=== PATIENT | female | born 1980 | race American Indian/Alaskan Native ===

== ENCOUNTER 2018-12-06 23:10 | Emergency (ER) | payer MEDICARE, OTHER ==
--- NOTE | 2018-12-07 00:45 | Emergency Department Report ---
ED General Adult HPI - General Chief complaint: Abdominal Pain Stated complaint: ABDOMINAL PAIN Time Seen by Provider: 12/07/18 00:43 Source: EMS Mode of arrival: Stretcher Limitations: No Limitations - History of Present Illness Initial comments: 38 y.o. female with no PMHx presents with complaint of abdominal pain after eating at [employer]. Patient states that she had [employer] at 4 PM today. Patient states that prior to having this she was asymptomatic. Patient states that after ingestion A Gong she had multiple episodes of vo miting. Patient denies any hematemesis. Patient complains of diarrhea as well but denies any hematochezia. Patient states she tried Pepto-Bismol, Gloria- Valier, and Pepcid AC with no relief. Patient denies any dysuria or hematuria. Patient has had no fever. - Related Data Previous Rx's Medication Instructions Recorded Last Taken Type Famotidine [Pepcid] 20 mg PO BID #60 tablet 12/07/18 Unknown Rx traMADol [Ultram] 50 mg PO Q6HR PRN #20 tablet 12/07/18 Unknown Rx Allergies Allergy/AdvReac Type Severity Reaction Status Date / Time Sulfa (Sulfonamide Allergy Mild Unknown Verified 12/07/18 00:19 Antibiotics) ED Review of Systems ROS: Stated complaint: ABDOMINAL PAIN Other details as noted in HPI Constitutional: denies: chills, fever Eyes: denies: eye pain, eye discharge, vision change ENT: denies: ear pain, throat pain Respiratory: denies: cough, shortness of breath, wheezing Cardiovascular: denies: chest pain, palpitations Endocrine: no symptoms reported Gastrointestinal: abdominal pain, nausea, vomiting, diarrhea Genitourinary: denies: urgency, dysuria, discharge Musculoskeletal: denies: back pain, joint swelling, arthralgia Skin: denies: rash, lesions Neurological: denies: headache, weakness, paresthesias Psychiatric: denies: anxiety, depression Hematological/Lymphatic: denies: easy bleeding, easy bruising ED Past Medical Hx - Social History Smoking Status: Current Every Day Smoker Substance Use Type: Marijuana - Medications Home Medications: Home Medications Medication Instructions Recorded Confirmed Last Taken Type Famotidine [Pepcid] 20 mg PO BID #60 tablet 12/07/18 Unknown Rx traMADol [Ultram] 50 mg PO Q6HR PRN #20 tablet 12/07/18 Unknown Rx ED Physical Exam - General Limitations: No Limitations General appearance: alert, in distress, other (awake; uncomfortable) - Head Head exam: Present: atraumatic, normocephalic - Eye Eye exam: Present: normal appearance - ENT ENT exam: Present: mucous membranes dry - Neck Neck exam: Present: normal inspection - Respiratory Respiratory exam: Present: normal lung sounds bilaterally. Absent: respiratory distress - Cardiovascular Cardiovascular Exam: Present: regular rate, normal rhythm. Absent: systolic murmur, diastolic murmur, rubs, gallop - GI/Abdominal GI/Abdominal exam: Present: soft, tenderness (diffusely), normal bowel sounds. Absent: rebound - Extremities Exam Extremities exam: Present: normal inspection - Back Exam Back exam: Present: normal inspection - Neurological Exam Neurological exam: Present: alert, oriented X3 - Psychiatric Psychiatric exam: Present: normal affect, normal mood - Skin Skin exam: Present: warm, dry, intact, normal color. Absent: rash ED Course Vital Signs 12/07/18 12/07/18 12/07/18 00:03 00:15 00:31 Temperature Pulse Rate 92 H 81 Respiratory 11 L 18 11 L Rate Blood Pressure Blood Pressure [Left] O2 Sat by Pulse 99 100 Oximetry 12/07/18 12/07/18 12/07/18 00:45 00:47 01:18 Temperature 97.9 F Pulse Rate 68 68 Respiratory 11 L 11 L Rate Blood Pressure Blood Pressure 158/104 [Left] O2 Sat by Pulse 100 99 Oximetry 12/07/18 12/07/18 12/07/18 01:30 02:29 02:30 Temperature Pulse Rate 57 L 91 H 70 Respiratory 13 10 L 14 Rate Blood Pressure 168/94 153/97 Blood Pressure 171/100 [Left] O2 Sat by Pulse 100 100 100 Oximetry 12/07/18 12/07/18 12/07/18 03:00 03:15 03:45 Temperature Pulse Rate 66 62 62 Respiratory 16 16 12 Rate Blood Pressure 155/91 168/94 155/91 Blood Pressure [Left] O2 Sat by Pulse 100 100 100 Oximetry 12/07/18 04:00 Temperature Pulse Rate 64 Respiratory 17 Rate Blood Pressure 157/103 Blood Pressure [Left] O2 Sat by Pulse 100 Oximetry ED Medical Decision Making - Lab Data Result diagrams: 12/07/18 01:02 12/07/18 01:02 - Medical Decision Making Patient received IV normal saline bolus of one liter and received 4 mg of Morphine and 4 mg of Zofran therapy. Patient received a second dose of 4 mg of morphine which helped to diminish her pain. Patient to be discharged to follow up with PCP. - Differential Diagnosis Pancreatitis; Cholelithiasis; electrolyte abnormality; anemia; Viral illnes Critical care attestation.: If time is entered above; I have spent that time in minutes in the direct care of this critically ill patient, excluding procedure time. ED Disposition Clinical Impression: Abdominal pain, Vomiting, Diarrhea Disposition: - TO HOME OR SELFCARE Is pt being admited?: No Does the pt Need Aspirin: No Condition: Stable Instructions: Abdominal Pain (ED) Prescriptions: Famotidine [Pepcid] 20 mg PO BID #60 tablet traMADol [Ultram] 50 mg PO Q6HR PRN #20 tablet PRN Reason: Pain Time of Disposition: 04:56 Print Language: INDONESIAN
[2018-12-07] MEDS ORDERED: MORPHINE IV ONE ×2 (00:53→02:22)
[2018-12-07] MEDS ORDERED: NACL 0.9% 1000 ML 1,000 ML IV ONE (00:53)
[2018-12-07] MEDS ORDERED: ZOFRAN IV ONE ×2 (00:53→04:09)
[2018-12-07] MEDS ORDERED: PEPCID IV ONE (00:53)
[2018-12-07 01:11] LABS: Basophils % (Auto) 0.5 % (0.0-1.8); Eosinophils % (Auto) 0.3 % (0.0-4.3); Hematocrit 39.5 % (30.3-42.9); Hemoglobin 13.3 gm/dl (10.1-14.3); Lymphocytes # (Auto) 1.6 K/mm3 (1.2-5.4); Mean Corpuscular HGB Conc 34 % (30-34); Mean Corpuscular Volume 104 fl (79-97); Monocytes # (Auto) 0.3 K/mm3 (0.0-0.8); Monocytes % (Auto) 4.5 % (0.0-7.3); Platelet Count 354 K/mm3 (140-440); Red Cell Distribution Width 13.7 % (13.2-15.2)
[2018-12-07 01:44] LABS: Alanine Aminotransferase 23 units/L (7-56); Albumin 4.8 g/dL (3.9-5); BUN/Creatinine Ratio 16; Blood Urea Nitrogen 8 mg/dL (7-17); Calcium 9.6 mg/dL (8.4-10.2); Hemolysis Index 21
[2018-12-07 01:46] LABS: Bilirubin,Direct < 0.2 mg/dL (0-0.2)
[2018-12-07] MEDS ORDERED: PERCOCET 5/325 PO STA (04:58)
[2018-12-07 05:10] VITALS: BP 143/90
--- NOTE | 2018-12-07 10:24 | Cat Scan Report ---
FINAL REPORT EXAM: CT ABDOMEN PELVIS WO CON HISTORY: Abdominal Pain TECHNIQUE: Routine axial imaging was obtained of the abdomen and pelvis without oral or IV contrast. Sagittal and coronal reconstructions were reviewed. FINDINGS: The study is limited without IV contrast. The lung bases are negative for infiltrates or effusions. The liver, gallbladder, biliary tree, pancreas, spleen, and adrenal glands appear normal. The kidneys reveal a nonobstructing 2 mm stone in the lower pole of the right kidney. There is no evidence of hy dronephrosis. The bowel loops are normal in caliber. There is no evidence of free fluid or adenopathy . The appendix is not enlarged. There is no evidence of free fluid or adenopathy. The uterus and blad henry appear normal. The skeletal structures reveal degenerative arthritic changes in the lower lumbar spine. IMPRESSION: No acute process in the abdomen and pelvis. Nonobstructing small stone in the right kidney. No evidence of hydronephrosis. Degenerative arthritic changes lower lumbar spine.
== END 2018-12-07 05:20 | disposition home or self-care (01) ==
LOC: ED 23:10
DX: R10.9 Unspecified abdominal pain (principal); R11.2 Nausea with vomiting, unspecified; R19.7 Diarrhea, unspecified; F17.200 Nicotine dependence, unspecified, uncomplicated; F12.10 Cannabis abuse, uncomplicated; Z88.2 Allergy status to sulfonamides
CPT/HCPCS: 36415; 74176; 80048; 80076; 83690; 84703; 85025; 96361; 96374; 96375; 96376; 99284; J2270; J2405; J7030

== ENCOUNTER 2019-06-08 09:52 | Emergency (ER) | payer MEDICAID, MEDICARE ==
[2019-06-08 10:13] VITALS: BP 138/84
[2019-06-08 10:37] LABS: Basophils # (Auto) 0.1 K/mm3 (0.0-0.1); Basophils % (Auto) 0.7 % (0.0-1.8); Eosinophils # (Auto) 0.1 K/mm3 (0.0-0.4); Eosinophils % (Auto) 1.1 % (0.0-4.3); Hemoglobin 14.1 gm/dl (10.1-14.3); Lymphocytes # (Auto) 1.4 K/mm3 (1.2-5.4); Lymphocytes % (Auto) 17.3 % (13.4-35.0); Monocytes # (Auto) 0.7 K/mm3 (0.0-0.8)
[2019-06-08] MEDS ORDERED: TORADOL IV ONE ×2 (10:51→10:55)
[2019-06-08] MEDS ORDERED: ZOFRAN IV ONE (10:51)
[2019-06-08] MEDS ORDERED: NACL 0.9% 1000 ML 1,000 ML IV ONE (10:51)
--- NOTE | 2019-06-08 10:52 | Emergency Department Report ---
ED Abdominal Pain HPI - General Chief Complaint: Abdominal Pain Stated Complaint: ABD PAIN Time Seen by Provider: 06/08/19 10:49 Source: patient, family Mode of arrival: Wheelchair Limitations: No Limitations - History of Present Illness Initial Comments: 39-year-old -Indian female presents to the ED with bilateral flank pain, for the past 3 months Intermittently. She has been to several hospital for her symptoms and was diagnosed with a kidney stone. She has been taking all "10 mg on a regular basis for her symptoms. She denies any fever, nausea, vomiting. MD Complaint: abdominal pain, flank pain -: Gradual, month(s) Location: L flank, R flank - Related Data Previous Rx's Medication Instructions Recorded Last Taken Type Famotidine [Pepcid] 20 mg PO BID #60 tablet 12/07/18 Unknown Rx traMADol [Ultram] 50 mg PO Q6HR PRN #20 tablet 12/07/18 Unknown Rx Ketorolac [Toradol] 10 mg PO Q6H PRN #15 tablet 06/08/19 Unknown Rx Allergies Allergy/AdvReac Type Severity Reaction Status Date / Time Sulfa (Sulfonamide Allergy Mild Unknown Verified 12/07/18 00:19 Antibiotics) ED Review of Systems ROS: Stated complaint: ABD PAIN Other details as noted in HPI Comment: All other systems reviewed and negative Eyes: denies: eye pain Respiratory: denies: cough Cardiovascular: denies: chest pain, palpitations Gastrointestinal: abdominal pain, nausea ED Past Medical Hx - Past Medical History Additional medical history: Kidney stones - Surgical History Past Surgical History?: No - Social History Smoking Status: Current Every Day Smoker Substance Use Type: None - Medications Home Medications: Home Medications Medication Instructions Recorded Confirmed Last Taken Type Famotidine [Pepcid] 20 mg PO BID #60 tablet 12/07/18 06/08/19 Unknown Rx traMADol [Ultram] 50 mg PO Q6HR PRN #20 tablet 12/07/18 06/08/19 Unknown Rx Ketorolac [Toradol] 10 mg PO Q6H PRN #15 tablet 06/08/19 Unknown Rx ED Physical Exam - General Limitations: No Limitations General appearance: alert, in no apparent distress - Head Head exam: Present: atraumatic, normocephalic - Eye Eye exam: Present: normal appearance, PERRL, EOMI Pupils: Present: normal accommodation - ENT ENT exam: Present: normal exam, normal orophraynx - Respiratory Respiratory exam: Present: normal lung sounds bilaterally - Cardiovascular Cardiovascular Exam: Present: regular rate, normal rhythm - GI/Abdominal GI/Abdominal exam: Present: soft, normal bowel sounds - Rectal Rectal exam: Present: deferred - External exam: Present: normal external exam - Extremities Exam Extremities exam: Present: normal inspection ED Course Vital Signs 06/08/19 10:11 Temperature 98.4 F Pulse Rate 96 H Respiratory 20 Rate Blood Pressure 138/84 O2 Sat by Pulse 100 Oximetry ED Medical Decision Making - Lab Data Result diagrams: 06/08/19 10:27 06/08/19 10:27 - Medical Decision Making CT showed, 2 mm nonobstructing stone on the right, patient advised, will d/c home. Critical care attestation.: If time is entered above; I have spent that time in minutes in the direct care of this critically ill patient, excluding procedure time. ED Disposition Clinical Impression: Kidney stones Disposition: DC-01 TO HOME OR SELFCARE Is pt being admited?: No Does the pt Need Aspirin: No Condition: Stable Instructions: Abdominal Pain (ED) Prescriptions: Ketorolac [Toradol] 10 mg PO Q6H PRN #15 tablet PRN Reason: Pain Referrals: MIRLANDE NICHOLSON MD [Primary Care Provider] - 3-5 Days
[2019-06-08] MEDS ORDERED: MORPHINE IV ONE (10:56)
[2019-06-08 10:58] LABS: Alanine Aminotransferase 37 units/L (7-56); Albumin 4.6 g/dL (3.9-5); BUN/Creatinine Ratio 12; Blood Urea Nitrogen 7 mg/dL (7-17); Calcium 9.9 mg/dL (8.4-10.2); Hemolysis Index 31
[2019-06-08 11:02] LABS: Hematocrit 41.8 % (30.3-42.9); Mean Corpuscular HGB Conc 34 % (30-34); Mean Corpuscular Volume 103 fl (79-97); Platelet Count 436 K/mm3 (140-440); Red Blood Count 4.06 M/mm3 (3.65-5.03); Red Cell Distribution Width 12.1 % (13.2-15.2)
[2019-06-08 12:30] LABS: Bilirubin,Urine NEG (Negative); Blood,Urine MOD (Negative); Color,Urine Yellow (Yellow); Mucus,Urine 3+ /HPF; Protein,Urine <15 mg/dL mg/dL (Negative)
[2019-06-08 12:44] LABS: HCG Qualitative,Urine Negative (Negative)
--- NOTE | 2019-06-08 13:38 | Cat Scan Report ---
CT ABDOMEN AND PELVIS WITHOUT CONTRAST HISTORY: bilat flank pain h/o kidney stones COMPARISON: 12/07/2018 TECHNIQUE: Images of the abdomen and pelvis were obtained without IV contrast. Oral contrast was not given. Dose adjustment was performed according to patient size. This exam is limited without IV contrast and is tailored for evaluation of renal calculi. Renal trell s and other sources of hematuria and abdominal pain may not be visible on this exam. CONTRAST: None. FINDINGS: CT ABDOMEN: Lung Bases: Clear. Liver: Normal. Biliary: Normal. Spleen: Normal. Pancreas: Normal. Adrenals: Normal. Right Kidney: A 2 mm nonobstructive lower pole calculus is unchanged compared to the last exam. No ot her calculi. No hydronephrosis. Left Kidney: No nephrolithiasis or hydronephrosis. Lymphatics: No lymphadenopathy. Vasculature: No significant abnormality. Bowel/Peritoneum: No significant abnormality. No free air. No free fluid. Normal appendix. CT PELVIS: : Normal urinary bladder and uterus. Ovaries are not clearly delineated. Osseous Structures: No significant abnormality. Additional Findings: L5-S1 degenerative disc disease with vacuum disc phenomenon. IMPRESSION: 1. A 2 mm nonobstructive right lower pole renal calculus and no other urinary calculi. 2. No hydronephrosis or hydroureter. 3. L5-S1 degenerative disc disease. Signer Name: Lewis Flores MD Signed: 06/08/2019 1:34 PM Workstation Name: [id number]
== END 2019-06-08 14:40 | disposition home or self-care (01) ==
LOC: ED 09:52
DX: N20.0 Calculus of kidney (principal); F17.200 Nicotine dependence, unspecified, uncomplicated; Z88.2 Allergy status to sulfonamides; Z79.899 Other long term (current) drug therapy
CPT/HCPCS: 36415; 74176; 80053; 81001; 81025; 85025; 96374; 96375; 99284; J1885; J2270; J2405; J7030

== ENCOUNTER 2020-01-30 05:13 | Emergency (ER) | payer SELFPAY ==
[2020-01-30] MEDS ORDERED: ASPIRIN 325 MG TAB PO ONE (05:30)
--- NOTE | 2020-01-30 06:01 | XRay Report ---
CHEST 1 VIEW INDICATION: Chest Pain. COMPARISON: none FINDINGS: SUPPORT DEVICES: None. HEART / MEDIASTINUM: No significant abnormality. LUNGS / PLEURA: No significant pulmonary or pleural abnormality. No pneumothorax. ADDITIONAL FINDINGS: IMPRESSION: 1. No acute cardiopulmonary disease Signer Name: Yunior Pro MD Signed: 01/30/2020 5:56 AM Workstation Name: [id number]
[2020-01-30 06:12] LABS: Basophils % (Auto) 0.4 % (0.0-1.8); Eosinophils % (Auto) 0.2 % (0.0-4.3); Lymphocytes # (Auto) 1.4 K/mm3 (1.2-5.4); Lymphocytes % (Auto) 14.2 % (13.4-35.0); Mean Corpuscular HGB Conc 34 % (30-34); Mean Corpuscular Volume 99 fl (79-97); Monocytes # (Auto) 0.6 K/mm3 (0.0-0.8); Monocytes % (Auto) 5.5 % (0.0-7.3); Platelet Count 344 K/mm3 (140-440); Red Blood Count 4.13 M/mm3 (3.65-5.03); Red Cell Distribution Width 13.9 % (13.2-15.2)
[2020-01-30 06:34] LABS: BUN/Creatinine Ratio 16; Blood Urea Nitrogen 8 mg/dL (7-17); Calcium 10.1 mg/dL (8.4-10.2); Hemolysis Index 3
--- NOTE | 2020-01-30 06:57 | Emergency Department Report ---
ED General Adult HPI - General Chief complaint: Chest Pain Stated complaint: CHEST PAIN Time Seen by Provider: 01/30/20 06:32 Source: EMS Mode of arrival: Stretcher Limitations: No Limitations - History of Present Illness Initial comments: The patient presents to the emergency department with a chief complaint of chest pain that started this morning. Patient describes the chest pain as being on the right side of her chest and sharp in nature. Patient states the chest pain is worse with deep breaths. Patient denies any recent travel via airplane or vehicle. -: Sudden Severity scale (0 -10): 5 Quality: sharp Consistency: constant Improves with: none Worsens with: none Associated Symptoms: denies other symptoms Treatments Prior to Arrival: none - Related Data Previous Rx's Medication Instructions Recorded Last Taken Type Famotidine [Pepcid] 20 mg PO BID #60 tablet 12/07/18 Unknown Rx traMADoL [Ultram] 50 mg PO Q6HR PRN #20 tablet 12/07/18 Unknown Rx Ketorolac [Toradol] 10 mg PO Q6H PRN #15 tablet 06/08/19 Unknown Rx traMADoL [Ultram] 50 mg PO Q6HR PRN #20 tablet 01/30/20 Unknown Rx Allergies Allergy/AdvReac Type Severity Reaction Status Date / Time Sulfa (Sulfonamide Allergy Mild Unknown Verified 12/07/18 00:19 Antibiotics) ED Review of Systems ROS: Stated complaint: CHEST PAIN Other details as noted in HPI Comment: All other systems reviewed and negative Constitutional: denies: chills, fever Eyes: denies: eye pain, eye discharge, vision change ENT: denies: ear pain, throat pain Respiratory: denies: cough, shortness of breath, wheezing Cardiovascular: chest pain. denies: palpitations Endocrine: no symptoms reported Gastrointestinal: denies: abdominal pain, nausea, diarrhea Genitourinary: denies: urgency, dysuria, discharge Musculoskeletal: denies: back pain, joint swelling, arthralgia Skin: denies: rash, lesions Neurological: denies: headache, weakness, paresthesias Psychiatric: denies: anxiety, depression Hematological/Lymphatic: denies: easy bleeding, easy bruising ED Past Medical Hx - Past Medical History Previous Medical History?: Yes Additional medical history: Kidney stones, anxiety - Surgical History Past Surgical History?: No - Social History Smoking Status: Never Smoker Substance Use Type: Marijuana - Medications Home Medications: Home Medications Medication Instructions Recorded Confirmed Last Taken Type Famotidine [Pepcid] 20 mg PO BID #60 tablet 12/07/18 06/08/19 Unknown Rx traMADoL [Ultram] 50 mg PO Q6HR PRN #20 tablet 12/07/18 06/08/19 Unknown Rx Ketorolac [Toradol] 10 mg PO Q6H PRN #15 tablet 06/08/19 Unknown Rx traMADoL [Ultram] 50 mg PO Q6HR PRN #20 tablet 01/30/20 Unknown Rx ED Physical Exam - General Limitations: No Limitations General appearance: alert, in no apparent distress - Head Head exam: Present: atraumatic, normocephalic - Eye Eye exam: Present: normal appearance, PERRL, EOMI - ENT ENT exam: Present: mucous membranes dry - Neck Neck exam: Present: normal inspection - Respiratory Respiratory exam: Present: normal lung sounds bilaterally. Absent: respiratory distress - Cardiovascular Cardiovascular Exam: Present: regular rate, normal rhythm. Absent: systolic murmur, diastolic murmur, rubs, gallop - GI/Abdominal GI/Abdominal exam: Present: soft, normal bowel sounds. Absent: distended, tenderness - Extremities Exam Extremities exam: Present: normal inspection - Back Exam Back exam: Present: normal inspection - Neurological Exam Neurological exam: Present: alert, oriented X3, CN II-XII intact. Absent: motor sensory deficit - Psychiatric Psychiatric exam: Present: normal affect, normal mood - Skin Skin exam: Present: warm, dry, intact, normal color. Absent: rash ED Course Vital Signs 01/30/20 01/30/20 01/30/20 05:21 05:27 05:28 Temperature 97.8 F 97.8 F Pulse Rate 75 75 Respiratory 16 16 Rate Blood Pressure 119/79 116/77 Blood Pressure 116/77 [Left] O2 Sat by Pulse 100 100 100 Oximetry 01/30/20 01/30/20 01/30/20 05:30 05:46 06:00 Temperature Pulse Rate 64 80 Respiratory 22 17 Rate Blood Pressure 119/79 119/79 119/79 Blood Pressure [Left] O2 Sat by Pulse 100 100 100 Oximetry 01/30/20 01/30/20 01/30/20 06:16 06:30 06:46 Temperature Pulse Rate Respiratory Rate Blood Pressure 113/90 113/90 113/90 Blood Pressure [Left] O2 Sat by Pulse 100 100 100 Oximetry 01/30/20 01/30/20 01/30/20 07:00 07:16 07:30 Temperature Pulse Rate 100 H 82 Respiratory 16 24 Rate Blood Pressure 113/90 114/82 114/82 Blood Pressure [Left] O2 Sat by Pulse 100 100 100 Oximetry 01/30/20 01/30/20 01/30/20 07:46 07:49 08:00 Temperature Pulse Rate 92 H 81 Respiratory 17 22 Rate Blood Pressure 114/82 114/82 Blood Pressure 114/82 [Left] O2 Sat by Pulse 100 100 97 Oximetry 01/30/20 01/30/20 01/30/20 08:16 08:30 08:46 Temperature Pulse Rate 105 H 95 H 70 Respiratory 13 Rate Blood Pressure 118/60 118/60 118/60 Blood Pressure [Left] O2 Sat by Pulse 100 99 Oximetry 01/30/20 01/30/20 01/30/20 09:00 09:16 09:30 Temperature Pulse Rate 81 81 Respiratory 15 16 Rate Blood Pressure 118/60 118/60 115/68 Blood Pressure [Left] O2 Sat by Pulse 90 100 100 Oximetry 01/30/20 09:46 Temperature Pulse Rate Respiratory Rate Blood Pressure 115/68 Blood Pressure [Left] O2 Sat by Pulse 88 Oximetry ED Medical Decision Making - Lab Data Result diagrams: 01/30/20 06:00 01/30/20 06:00 Lab Results 01/30/20 01/30/20 01/30/20 Range/Units 06:00 06:00 07:04 WBC 10.2 (4.5-11.0) K/mm3 RBC 4.13 (3.65-5.03) M/mm3 Hgb 14.0 (10.1-14.3) gm/dl Hct 41.0 (30.3-42.9) % MCV 99 H (79-97) fl MCH 34 H (28-32) pg MCHC 34 (30-34) % RDW 13.9 (13.2-15.2) % Plt Count 344 (140-440) K/mm3 Lymph % (Auto) 14.2 (13.4-35.0) % Sullivan % (Auto) 5.5 (0.0-7.3) % Eos % (Auto) 0.2 (0.0-4.3) % Baso % (Auto) 0.4 (0.0-1.8) % Lymph # 1.4 (1.2-5.4) K/mm3 Sullivan # 0.6 (0.0-0.8) K/mm3 Eos # 0.0 (0.0-0.4) K/mm3 Baso # 0.0 (0.0-0.1) K/mm3 Seg Neutrophils % 79.7 H (40.0-70.0) % Seg Neutrophils # 8.1 H (1.8-7.7) K/mm3 D-Dimer 195.36 (0-234) ng/mlDDU Sodium 139 (137-145) mmol/L Potassium 4.2 (3.6-5.0) mmol/L Chloride 101.5 (98-107) mmol/L Carbon Dioxide 20 L (22-30) mmol/L Anion Gap 22 mmol/L BUN 8 (7-17) mg/dL Creatinine 0.5 L (0.7-1.2) mg/dL Estimated GFR > 60 ml/min BUN/Creatinine Ratio 16 % Glucose 127 H (65-100) mg/dL Calcium 10.1 (8.4-10.2) mg/dL Troponin T < 0.010 (0.00-0.029) ng/mL 01/30/20 Range/Units 08:30 WBC (4.5-11.0) K/mm3 RBC (3.65-5.03) M/mm3 Hgb (10.1-14.3) gm/dl Hct (30.3-42.9) % MCV (79-97) fl MCH (28-32) pg MCHC (30-34) % RDW (13.2-15.2) % Plt Count (140-440) K/mm3 Lymph % (Auto) (13.4-35.0) % Sullivan % (Auto) (0.0-7.3) % Eos % (Auto) (0.0-4.3) % Baso % (Auto) (0.0-1.8) % Lymph # (1.2-5.4) K/mm3 Sullivan # (0.0-0.8) K/mm3 Eos # (0.0-0.4) K/mm3 Baso # (0.0-0.1) K/mm3 Seg Neutrophils % (40.0-70.0) % Seg Neutrophils # (1.8-7.7) K/mm3 D-Dimer (0-234) ng/mlDDU Sodium (137-145) mmol/L Potassium (3.6-5.0) mmol/L Chloride (98-107) mmol/L Carbon Dioxide (22-30) mmol/L Anion Gap mmol/L BUN (7-17) mg/dL Creatinine (0.7-1.2) mg/dL Estimated GFR ml/min BUN/Creatinine Ratio % Glucose (65-100) mg/dL Calcium (8.4-10.2) mg/dL Troponin T < 0.010 (0.00-0.029) ng/mL - EKG Data -: EKG Interpreted by Me EKG shows normal: sinus rhythm Rate: normal - Radiology Data Radiology results: report reviewed - Medical Decision Making Discussed results with patient Critical care attestation.: If time is entered above; I have spent that time in minutes in the direct care of this critically ill patient, excluding procedure time. ED Disposition Clinical Impression: Nonspecific chest pain Disposition: DC-01 TO HOME OR SELFCARE Is pt being admited?: No Does the pt Need Aspirin: No Condition: Stable Instructions: Chest Pain (ED) Additional Instructions: return if worse Prescriptions: traMADoL [Ultram] 50 mg PO Q6HR PRN #20 tablet PRN Reason: Pain Referrals: [facility] [Provider Group] - 3-5 Days [facility] [Provider Group] - 3-5 Days PRIMARY [facility]ARE, [Primary Care Provider] - 3-5 Days
[2020-01-30] MEDS ORDERED: KETOROLAC 60 MG/2 ML INJ IVP ONE (08:42)
[2020-01-30] MEDS ORDERED: KETOROLAC 60 MG/2 ML INJ IM ONE (09:05)
[2020-01-30 09:58] VITALS: BP 115/68
== END 2020-01-30 10:25 | disposition home or self-care (01) ==
LOC: ED 05:13
DX: R07.9 Chest pain, unspecified (principal); F41.9 Anxiety disorder, unspecified; F12.90 Cannabis use, unspecified, uncomplicated; Z88.2 Allergy status to sulfonamides; Z79.899 Other long term (current) drug therapy; Z87.442 Personal history of urinary calculi
CPT/HCPCS: 36415; 71045; 80048; 84484; 85025; 85379; 93005; 93010; 96372; 99284; J1885

== ENCOUNTER 2020-10-05 15:00 | Emergency (ER) | payer SELFPAY ==
[2020-10-05 16:50] VITALS: BP 111/77
--- NOTE | 2020-10-05 16:50 | Event Note ---
ED Screening Note ED Screening Note: constipation for 3 days, states she was able to have a BM this morning laxative +n/v abd pain states she has been taking ampetamin over the counter she ordered online to "help her gain weight" no fever no urinary sx PMHx none allergy: sulfa never had any abd surgery This initial assessment/diagnostic orders/clinical plan/treatment(s) is/are subject to change based on patients health status, clinical progression and re- assessment by fellow clinical providers in the ED. Further treatment and workup at subsequent clinical providers discretion. Patient/guardian urged not to elope from the ED as their condition may be serious if not clinically assessed and managed. Initial orders include: labs, UA
== END 2020-10-05 19:00 | disposition left against medical advice (07) ==
LOC: ED 15:00
DX: R10.9 Unspecified abdominal pain (principal); Z53.21 Procedure and treatment not carried out due to patient leaving prior to being seen by health care provider

== ENCOUNTER 2022-05-23 17:42 | Emergency (ER) | payer MEDICARE, MEDICAID | END 2022-05-23 23:22 | disposition home or self-care (01) | LOC: ED 17:42 | DX: K08.89 Other specified disorders of teeth and supporting structures (principal); Z53.21 Procedure and treatment not carried out due to patient leaving prior to being seen by health care provider ==